=== PATIENT | female | born 1965 | race Caucasian/White ===

== ENCOUNTER 2016-09-26 11:33 | Day surgery (SDC) | payer BC ==
[2016-09-25 14:04] VITALS: BMI 44.2
[2016-09-26] MEDS ORDERED: PROPOFOL 20 ML ONE ×4 (13:02)
[2016-09-26] MEDS ORDERED: LIDOCAINE HCL/PF 1% SDV 5ML VIAL ONE (13:02)
[2016-09-26 13:10] VITALS: TEMP 97.8
[2016-09-26 13:18] VITALS: PULSE 100
[2016-09-26 14:47] VITALS: BP 163/79
--- NOTE | 2016-09-29 13:55 | PATH ---
Surgical Pathology Report Patient Name: ANDRA LYNCH [facility]. Rec. #: [id number] /Age/Gender: 1965 (Age: 51) / F Account: [id number] Location: [facility]-ENDOSCOPY Taken: 09/26/2016 Received: 09/26/2016 Reported: 09/29/2016 Physicians: David Santo M.D. Specimen(s) Received POLYP SIGMOID Clinical History Rectal hemorrhage, hemorrhoids Diverticulosis, hemorrhoids, polyp Final Diagnosis COLON, SIGMOID, POLYP, POLYPECTOMY: HYPERPLASTIC-TYPE POLYP WITH FOCAL FEATURES SUGGESTIVE OF SESSILE SERRATED ADENOMA. Electronically Signed Colt Sanchez M.D. Gross Description Received in formalin, labeled "sigmoid polyp" is a sales, polypoid portion of soft tissue measuring 0.3 cm in greatest dimension. The specimen is submitted in toto in one cassette. /09/26/201609/26/2016
== END 2016-09-26 13:50 | disposition home or self-care (01) ==
LOC: JASU-ENDO 11:33
PROVIDERS: ATTEND Internal Medicine Gastroenterology
PROC: 0DBN8ZX Excision of Sigmoid Colon, Via Natural or Artificial Opening Endoscopic, Diagnostic (ICD-10-PCS; principal; 2016-09-26 12:30)
DX: Z12.11 Encounter for screening for malignant neoplasm of colon (principal); K57.30 Diverticulosis of large intestine without perforation or abscess without bleeding; D12.5 Benign neoplasm of sigmoid colon; K64.8 Other hemorrhoids; I10 Essential (primary) hypertension; E11.9 Type 2 diabetes mellitus without complications; E66.01 Morbid (severe) obesity due to excess calories
CPT/HCPCS: 84703; 88305-TC